=== PATIENT | female | born 1970 | race Caucasian/White ===

== ENCOUNTER 2016-11-02 08:40 | Observation (INO) | payer BC ==
[2016-10-25 11:39] LABS: HEMATOCRIT 38.7 % (36.0-48.0); HEMOGLOBIN 12.5 g/dL (12.0-16.0)
[2016-10-25 11:54] LABS: BUN (BLOOD UREA NITROGEN) 13 MG/DL (6-23); CALCIUM, SERUM 9.2 MG/DL (8.5-10.4); CHLORIDE, SERUM 106 MMOL/L (96-112); CO2 (CARBON DIOXIDE) 30 MMOL/L (24-34); CREATININE 0.58 MG/DL (0.55-1.02); GFR AFRICAN AMERICAN 129 ML/MIN (>=60); GFR NON AFRICAN AMERICAN 111 ML/MIN (>=60); GLUCOSE, SERUM 97 MG/DL (60-99); SODIUM, SERUM 140 MMOL/L (135-148)
--- NOTE | ~2016-11-02 | OP ---
Record Of Operation [facility] [address] [place]. [address] NAME: JEREMIE LEE : 72 STATUS : REG [facility]#: [id number] AGE: 46 ADM/REG DATE : 11/02/16 MR#: [id number] REPORT SERV DATE: 11/02/16 DICTATED BY: JUSTIN BUTCHER DATE: 11/02/16 REPORT STATUS : Draft TRANSCRIBED BY: MODL DATE: 11/02/16 DATE OF PROCEDURE: 11/02/2016 PREOPERATIVE DIAGNOSES: C4-5, C5-6, and C6-7 disk herniation with stenosis and spinal cord and nerve root compression, cervical radiculopathy, and cervical myelopathy. POSTOPERATIVE DIAGNOSES: C4-5, C5-6, and C6-7 disk herniation with stenosis and spinal cord and nerve root compression, cervical radiculopathy, and cervical myelopathy. PROCEDURES: Anterior cervical diskectomy and fusion, C4-5, C5-6, and C6-7; placement of Medtronic PEEK interbody spacer, C4-5, C5-6, and C6-7; anterior cervical plate from [employer]tronic, C4 through C7; allograft bone matrix; neuromonitoring; and operative microscope. SURGEON: Justin Butcher DO. ANESTHESIA: General. ESTIMATED BLOOD LOSS: 20 mL. COMPLICATIONS: None. INDICATIONS: The patient is a pleasant 46-year-old female with intractable neck and arm pain, failed conservative treatment. She also had progressive signs of cervical myelopathy from spinal cord compression. After discussion of the risks and benefits, and progressive neurologic decline, she elected to proceed with the surgery. DESCRIPTION OF PROCEDURE: I identified the patient in the holding area. Consent was obtained. Went to the operating room. Underwent general anesthesia with endotracheal intubation. Prepped and draped in the usual sterile fashion. Operative safety pause was performed, then we proceeded. An oblique incision was made over the left side of the neck, taken through the platysma. Dissection was carried out down to the anterior aspect of the spine. Longus colli elevated from C4 through C7 bilaterally. Self-retaining retractors were placed. [place] pin was placed in the vertebral body and lateral fluoroscopic image was used to verify operative level. Distraction was applied across the C4-C5 level. Operative microscope was brought in. A knife was used to perform an annulotomy. Free disk material was removed with the pituitary. Anterior osteophytes were removed with Kerr[place], posterior osteophytes and uncinate processes were taken down with a nadira thania. Foraminotomies performed with a [place]. Endplates were prepared with curettes, rasp, and a cutting thania. Trial spacers were implanted, then Medtronic PEEK interbody spacer with allograft bone matrix placed at C4-C5. This was repeated at C5-6 and C6-C7. [place] pins were removed. Anterior cervical plate from Medtronic was placed C4 through C7. Screws were placed, final tightened. Locking mechanisms were engaged. Final AP and lateral images were obtained. Irrigation was performed. Hemostasis was achieved. Subplatysmal drain was placed. Layered closure was performed. Sterile dressings were applied. The patient was awoken and extubated, and taken to the recovery room in stable condition. Record Of Operation [address] [address] NAME: JEREMIE LEE : 72 STATUS : REG [facility] PAT#: [id number] AGE: 46 ADM/REG DATE : 11/02/16 MR#: [id number] REPORT SERV DATE: 11/02/16 DICTATED BY: JUSTIN BUTCHER DATE: 11/02/16 REPORT STATUS : Draft TRANSCRIBED BY: IRENE DATE: 11/02/16 OPERATIVE FINDINGS: C4-7 disk disease and stenosis with spinal cord compression. No sustained neuromonitoring alerts. JANET/IRENE Justin Butcher DO / [id number] CC: DO JAYLIN Vargas
--- NOTE | ~2016-11-02 | PREOPHP ---
PreOp History and Physical [address] [place]. [address] NAME: JEREMIE LEE : 72 STATUS : REG [facility]#: [id number] AGE: 46 ADM/REG DATE : 11/02/16 MR#: [id number] REPORT SERV DATE: 11/02/16 DICTATED BY: JUSTIN BUTCHER DATE: 11/02/16 REPORT STATUS : Draft TRANSCRIBED BY: IRENE DATE: 11/02/16 CHIEF COMPLAINT: Neck pain. HISTORY OF PRESENT ILLNESS: The patient is a 46-year-old female with complaints of intractable neck and left upper extremity pain. Has failed multiple attempts at conservative treatment including medications, epidural injections, and physical therapy. She also has signs of early myelopathy. After discussion of risks, benefits and neurologic decline, she elected to proceed with surgery. REVIEW OF SYSTEMS: She denies chest pain, shortness of breath, and bowel or bladder changes. ALLERGIES: PENICILLIN. HOME MEDICATIONS: Include, amlodipine, fluconazole, fluticasone, gabapentin, hydrochlorothiazide, hydrocodone, ibuprofen, lisinopril, Singulair, Norvasc, phentermine, and Bactrim. FAMILY HISTORY: Noncontributory. PAST MEDICAL HISTORY: Includes, history of breast cancer, diabetes, hypertension, and memory loss. PHYSICAL EXAMINATION: VITAL SIGNS: Height 5 feet 10 inches, weight 214, BMI of 30.7. GENERAL: The patient is healthy appearing. No acute distress. PSYCH: Alert and oriented x3. Normal mood and affect. Gait is within normal limits. VASCULAR: No extremity swelling. SPINE: Decreased cervical motion. NEUROLOGIC: Strength in the upper extremities is 5/5 for bilateral upper extremities. No focal deficits. IMAGING: I have reviewed the MRI scan. She does have C4-C7 disk disease and stenosis with nerve root and spinal cord compression. ASSESSMENT: C4-C7 disk disease and stenosis with nerve root and spinal cord compression, cervical radiculopathy, cervical myelopathy. Failed conservative treatment. PLAN: The patient presents today for surgical intervention. Consent was obtained. All questions were answered. She is ready to proceed with surgery. JANET/IRENE Justin Butcher DO PreOp History and Physical [address] [place]. [address] NAME: JEREMIE LEE : 72 STATUS : REG [facility] [place] PAT#: [id number] AGE: 46 ADM/REG DATE : 11/02/16 MR#: [id number] REPORT SERV DATE: 11/02/16 DICTATED BY: JUSTIN BUTCHER DATE: 11/02/16 REPORT STATUS : Draft TRANSCRIBED BY: MODL DATE: 11/02/16 / [id number] CC: DO Zenia Vargas Samantha Coleen
--- NOTE | ~2016-11-02 | CN ---
Consultation Report [facility] [address] [place]. [address] NAME: JEREMIE LEE : 72 STATUS : ADM IN PAT#: [id number] AGE: 46 ADM/REG DATE : 11/02/16 MR#: [id number] REPORT SERV DATE: 11/03/16 DICTATED BY: KATERYNA GARBER DATE: 11/02/16 REPORT STATUS : Draft TRANSCRIBED BY: MODL DATE: 11/02/16 DATE OF CONSULTATION: 11/02/2016 REASON FOR CONSULTATION: Medical management for hypertension and diabetes. HISTORY OF PRESENT ILLNESS: The patient is a 46-year-old female with past history of bilateral breast cancer, arthritis, multiple degenerative changes, other changes in joints who comes in with cervical degeneration and additional multilevel disk herniation requiring surgical intervention. The patient reports that she had noticed that she was having steady decline, but did not think these were urgent or emergent. She had progressive weakness that would last about a few days to months, but then self-resolved. She typically attributed this to stiff neck. She noted that her sister had similar episodes and requiring surgical intervention. The patient currently reports that she had numbness in extremities requiring surgical further evaluation. The patient denies having any chest pain, shortness of breath, nausea, vomiting, diarrhea, any loss of bowel or bladder currently. Has had mild increased weight and decreased activity. There is nothing that worsens the symptoms, there is nothing that improves the symptoms. Symptoms are slightly improved. The patient currently reports postoperatively that she has had sore throat and still has difficulty getting a good position in bed. REVIEW OF SYSTEMS: For additional 10-point review of systems negative for that noted in the HPI. PAST MEDICAL HISTORY: Hypertension, bilateral mastectomy secondary to breast cancer, and knee arthritis. SURGICAL HISTORY: Bilateral mastectomies and bilateral knees and during this admission cervical repair with anterior cervical diskectomy and fusion, C4-C5, C5-C6, and C6-C7. SOCIAL HISTORY: No smoking. Rare alcohol. No illicits. FAMILY HISTORY: Diabetes and alcoholism. ALLERGIES: PENICILLIN. HOME MEDICATIONS: Tylenol, Norvasc, D3, Neurontin, glucosamine, [place], Motrin, Prinivil, and Singulair. PHYSICAL EXAMINATION: VITAL SIGNS: The patient's blood pressure 170/82, respiratory rate 16, pulse 87, temperature 97.5. BMI 31.4. General: Well developed, well nourished. Mildly uncomfortable. HEENT: Eyes, no scleral icterus. EOMI. ENT, nares patent. Dry mucous membranes. Tongue midline. NECK: In cervical collar. Consultation Report [address] [place]. [address] NAME: JEREMIE LEE : 72 STATUS : ADM IN PAT#: [id number] AGE: 46 ADM/REG DATE : 11/02/16 MR#: [id number] REPORT SERV DATE: 11/03/16 DICTATED BY: KATERYNA GARBER DATE: 11/02/16 REPORT STATUS : Draft TRANSCRIBED BY: MODL DATE: 11/02/16 CHEST: Equal chest expansion. RESPIRATORY: Clear to auscultation. No wheezes or rales. CV: Regular rate. No rubs. Bilateral pulses intact. ABDOMEN: Soft, nontender, nondistended. Bowel sounds positive. EXTREMITIES: Moves all extremities. Persistent numbness still in finger digits. The cap refill are good pulses bilaterally. Surgical draining bulb with serosanguineous fluid. SKIN: Warm and dry. NEURO: Alert and oriented with decreased sensation in left hand digits. Sensation still grossly intact in lower extremities. No loss of bowel or bladder reported. Normal vocal brigid. Mental status improving post sedation. PSYCH: Appropriate mood and affect. Talkative and pleasant. LABORATORY DATA: No current labs. Blood sugar was 142. ASSESSMENT AND PLAN: 1. Hypertension. 2. Hyperglycemia. 3. Multilevel disk herniation. PLAN: 1. For hypertension, lisinopril and calcium channel erica. We will increase calcium channel erica dose, p.r.n. clonidine pain control. The patient reports that she typically runs 140s to 90s at home. We will monitor clinical. 2. Hyperglycemia, sliding scale insulin. No history of diabetes. I will monitor likely stress demargination. 3. Multilevel-disk herniation, per Dr. Butcher, status post surgery, pain control. We will continue to follow. DDN/MODL Kateryna Garber MD / [id number] CC: Justin Butcher, DO CASH,JAYLIN ARMAS
[~2016-11-02 08:40] MED LIST: ACET500CAP PO; GLUCCHONDR PO; IBU600 PO; NEUR300 PO; NORCO1 TA2 PO; NORV5 PO; PRIN20 PO; SINGULAIR1 PO; VITAMIN D31000 UNIT PO
[2016-11-03 06:35] LABS: CALCIUM, SERUM 9.5 MG/DL (8.5-10.4); CHLORIDE, SERUM 105 MMOL/L (96-112); CREATININE 0.73 MG/DL (0.55-1.02); GFR AFRICAN AMERICAN 115 ML/MIN (>=60); GFR NON AFRICAN AMERICAN 99 ML/MIN (>=60); SODIUM, SERUM 140 MMOL/L (135-148)
[2016-11-03 06:38] LABS: BUN (BLOOD UREA NITROGEN) 7 MG/DL (6-23); CO2 (CARBON DIOXIDE) 25 MMOL/L (24-34); GLUCOSE, SERUM 119 MG/DL (60-99); POTASSIUM, SERUM 4.4 MMOL/L (3.5-5.3)
[2016-11-04] MEDS ORDERED: NORV10 PO (09:37)
[2016-11-04] MEDS ORDERED: FLEX PO (09:39)
[2016-11-04] MEDS ORDERED: PCET PO (09:40)
== END 2016-11-04 11:06 | disposition home or self-care (01) ==
LOC: SDC 08:40 → 4SO 15:49
PROVIDERS: Orthopaedic Surgery
PROC: 0RG20A0 Fusion of 2 or more Cervical Vertebral Joints with Interbody Fusion Device, Anterior Approach, Anterior Column, Open Approach (ICD-10-PCS; principal; 2016-11-02 10:45)
PROC: 0PH304Z Insertion of Internal Fixation Device into Cervical Vertebra, Open Approach (ICD-10-PCS; 2016-11-02 10:45)
DX: M50.121 Cervical disc disorder at C4-C5 level with radiculopathy (principal); M48.02 Spinal stenosis, cervical region; M50.021 Cervical disc disorder at C4-C5 level with myelopathy; M50.022 Cervical disc disorder at C5-C6 level with myelopathy; M50.023 Cervical disc disorder at C6-C7 level with myelopathy; M50.122 Cervical disc disorder at C5-C6 level with radiculopathy; M50.123 Cervical disc disorder at C6-C7 level with radiculopathy; I10 Essential (primary) hypertension; M13.869 Other specified arthritis, unspecified knee; E11.65 Type 2 diabetes mellitus with hyperglycemia; F32.9 Major depressive disorder, single episode, unspecified; Z98.890 Other specified postprocedural states; Z79.899 Other long term (current) drug therapy; Z88.0 Allergy status to penicillin; Z90.710 Acquired absence of both cervix and uterus; Z87.891 Personal history of nicotine dependence
CPT/HCPCS: 80048; 82962; 85014; 85018; 87641; 88304; 88311; 93005; 96374; 96375; 96376; 97116-GP; 97161-GP; A9270-GY; C1713; G0378; J0690; J1170; J2250; J2270; J2370; J2405; J2710; J3010